=== PATIENT | male | born 1980 | race Native Hawaiian/Other Pacific Islander ===

== ENCOUNTER 2017-06-03 13:56 | Emergency (ER) | payer OTHER ==
[~2017-06-03] VITALS: Ht 182.9 cm; Wt 99.8 kg
== END 2017-06-03 14:38 | disposition home or self-care (01) ==
LOC: ED 13:56
DX: M79.641 Pain in right hand (principal)
CPT/HCPCS: 99281

== ENCOUNTER 2017-07-05 19:21 | Emergency (ER) | payer OTHER ==
[~2017-07-05] VITALS: Ht 182.9 cm; Wt 99.8 kg
== END 2017-07-05 20:15 | disposition home or self-care (01) ==
LOC: ED 19:21
DX: K02.9 Dental caries, unspecified (principal); K08.89 Other specified disorders of teeth and supporting structures
CPT/HCPCS: 99281